=== PATIENT | female | born 1950 | race Caucasian/White ===

== ENCOUNTER 2022-02-04 21:59 | Emergency (ER) | payer MEDICARE, BC ==
[2022-02-04] MEDS ORDERED: Sodium Chloride 0.9% 10 ML Syringe FLUSH PRN (22:59)
[2022-02-04] MEDS ORDERED: Dexamethasone 4 MG/ML SDV IVPUSH STA (22:59)
[2022-02-04] MEDS ORDERED: Prochlorperazine 10 MG/2 ML SDV IVPUSH ONE (22:59)
[2022-02-04] MEDS ORDERED: Ketorolac 30 MG/ML SDV IVPUSH ONE (22:59)
[2022-02-04] MEDS ORDERED: Sodium Chloride 0.9% 500 ML IV ONE (23:05)
[2022-02-05 01:01] LABS: ESTIMATED GFR 49 mL/min (>60)
== END 2022-02-05 00:02 | disposition home or self-care (01) ==
LOC: JP.ED 21:59
DX: U07.1 COVID-19 (principal); G44.201 Tension-type headache, unspecified, intractable; Z88.0 Allergy status to penicillin; Z88.8 Allergy status to other drugs, medicaments and biological substances; Z90.710 Acquired absence of both cervix and uterus
CPT/HCPCS: 36415; 80053; 82728; 83615; 85025; 85379; 96374; 96375; 99284; J0780; J1100; J1885; J3490; J7040; U0002; 99281

== ENCOUNTER 2022-06-01 10:26 | Emergency (ER) | payer MEDICARE, BC ==
[2022-06-01] MEDS ORDERED: Sodium Chloride 0.9% 1,000 ML IV ONE (10:54)
== END 2022-06-01 12:49 | disposition home or self-care (01) ==
LOC: JP.ED 10:26
DX: R11.2 Nausea with vomiting, unspecified (principal); T45.1X5A Adverse effect of antineoplastic and immunosuppressive drugs, initial encounter; Z88.0 Allergy status to penicillin; Z88.5 Allergy status to narcotic agent; Z86.16 Personal history of COVID-19
CPT/HCPCS: 96360; 99284; J7030